=== PATIENT | male | born 2000 ===

== ENCOUNTER 2022-08-18 12:58 | Emergency (ER) | payer OTHER ==
[~2022-08-18] VITALS: Ht 182.9 cm; Wt 113.6 kg
[2022-08-18 13:18] VITALS: BP 121/66
== END 2022-08-18 17:58 | disposition left against medical advice (07) ==
LOC: ER 12:59
DX: R45.851 Suicidal ideations (principal); Z53.21 Procedure and treatment not carried out due to patient leaving prior to being seen by health care provider

== ENCOUNTER 2022-09-14 15:39 | Inpatient (IN) | payer OTHER, MEDICAID ==
[~2022-09-14] VITALS: Ht 182.9 cm; Wt 116.8 kg
--- NOTE | 2022-09-14 16:22 | NUR ---
ADMIT NOTE: Pt here on a 5150 for DTS from [facility]. Pt had a SA by overdose approximately one year ago. He has been depressed since that time. He recently had a medication change. He is c/o of "hearing voices." Property inventoried by DEJUAN Gonzalez and placed in a locker.
[2022-09-14 16:30] VITALS: BP 152/95
[2022-09-14] MEDS ORDERED: acetaminophen 325mg tablet PO PRN (16:45)
[2022-09-14] MEDS ORDERED: magnesium hydroxide 30ml (MOM) UD suspension PO PRN (16:45)
[2022-09-14] MEDS ORDERED: loperamide 2mg capsule PO PRN (16:45)
[2022-09-14] MEDS ORDERED: mag hydrox/Alum hydrox/simeth 30ml oral suspension PO PRN (16:45)
[2022-09-14] MEDS ORDERED: BUPR-94 PO (18:03)
[2022-09-14 19:21] VITALS: BP 150/76
[2022-09-14] MEDS: acetaminophen 325mg tablet PO PRN (20:29)
[2022-09-14] MEDS: traZODone 50mg tablet PO PRN (21:02)
--- NOTE | 2022-09-15 05:42 | NUR ---
Nursing Progress Note: Problem : Pt here a [address] from [facility]. Pt had a SA by overdose approximately one year ago. He has been depressed since that time. He recently had a medication change. He c/o of "hearing voices." Interventions : Introduced self and attempted to establish rapport, maintained a safe and supportive environment, ensured contract for safety, provided clear and simple instructions and maintained Q 15min safety checks. Response : Patient is pleasant and cooperative with care; no scheduled medication this shift. PRN Tylenol and Trazodone provided. He denies SI, HI, A/VH this shift; he appears animated and minimizing of Sx. Patient mostly isolative to his room; observed watching out of his window. Upon being asked, patient reported difficulties sleeping and provided Trazodone; observed sleeping and does not appear to be having difficulty. Plan : Patient requires a safe and supportive environment for medication adjustment and stabilization.
[2022-09-15 07:39] LABS: BASOPHILS % (AUTO) 0.7 % (0-1); EOSINOPHILS # (AUTO) 0.1 X10'3 (0-0.9); EOSINOPHILS % (AUTO) 2.1 % (0-6); HEMATOCRIT 43.2 % (42.0-52.0); HEMOGLOBIN 14.5 g/dl (14.0-17.9); LYMPHOCYTES # (AUTO) 1.9 X10'3 (1.1-4.8); LYMPHOCYTES % (AUTO) 28.5 % (21-51); MEAN CORPUSCULAR HEMOGLOBIN 29.1 PG (27.0-31.0); MEAN CORPUSCULAR HGB CONC 33.6 g/dL (33.0-36.5); MEAN CORPUSCULAR VOLUME 86.5 FL (78-98); MEAN PLATELET VOLUME 7.7 FL (7.4-10.4); MONOCYTES # (AUTO) 0.8 X10'3 (0-0.9); MONOCYTES % (AUTO) 11.5 % (2-12); NEUTROPHILS # (AUTO) 3.9 X10'3 (1.8-7.7); NEUTROPHILS % (AUTO) 57.2 % (42-75); PLATELET COUNT 311 X10'3 (140-440); RED BLOOD COUNT 4.99 X10'6 (4.70-6.10); RED CELL DISTRIBUTION WIDTH 13.7 % (11.5-14.5); WHITE BLOOD COUNT 6.8 X10'3 (4.5-11.0)
[2022-09-15 07:41] VITALS: BP 109/52
[2022-09-15 07:57] LABS: HEMOGLOBIN A1C 5.6 % (4.5-6.2)
[2022-09-15 07:58] LABS: ALANINE AMINOTRANSFERASE 35 U/L (12-78); ALBUMIN 3.7 G/DL (3.4-5.0); ALBUMIN/GLOBULIN RATIO 0.9 (1.1-1.5); ALKALINE PHOSPHATASE 100 IU/L (46-116); ANION GAP 10 (8-16); ASPARTATE AMINO TRANSFERASE 23 U/L (10-37); BILIRUBIN,TOTAL 0.3 MG/DL (0.1-1.0); BLOOD UREA NITROGEN 11 MG/DL (7-18); BUN/CREATININE RATIO 11.8 (5.4-32.0); CALCIUM 9.5 MG/DL (8.5-10.1); CHLORIDE 102 MMOL/L (99-107); CREATININE 0.93 MG/DL (0.60-1.10); GLUCOSE 109 MG/DL (70-104); POTASSIUM 3.8 MMOL/L (3.5-5.1); SODIUM 138 MMOL/L (135-145); TOTAL CARBON DIOXIDE 26.5 MMOL/L (24-32); TOTAL PROTEIN 7.7 G/DL (6.4-8.2); eGFR > 90 ML/MIN
[2022-09-15] MEDS: buPROPion SR 150mg tablet PO SCH ×2 (08:50→19:51)
--- NOTE | 2022-09-15 10:00 | NUR ---
Address update Edvin Ch, Father. [address] [address]
--- NOTE | 2022-09-15 10:37 | NUR ---
PSYCHOSOCIAL ASSESSMENT PT. is a 22-year-old male placed on a 5150 hold by [facility] staff at [facility] after presenting with suicidal thoughts, intrusive thoughts of hurting other people, killing his family (source: [facility] notes). Met with Pt. today. Clients presentation was well groomed, articulate, soft-spoken, good eye-contact, guarded, appeared overly smiley and positive given the circumstances (minimizing). Client was guarded in his answers, including about suicidal ideation, past attempts, and thoughts of harming others. Client appeared anxious as evidenced by body language (fidgeting) and self-reporting: Client stated being anxious about being here ([facility]). 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 Precipitating factors include a July med change from Zoloft to Wellbutrin: Client states, Its been a disaster, reporting increased depression, intrusive thoughts of losing control. Client states, everything just became too muchI feel like I had a massive panic attack. Additional stressor is clients mother just finished chemotherapy: Client reports being close very to his mother, and very close to one sister (Lucila). Client stated, "But she's doing better now." (again, potential minimizing). Client states staying with his father causes some stress: Father is strict, very jainism, and they do not agree on medina topics making things awkward because client stays at fathers house when he is in [place]. Client states he feels more comfortable in [place], finding [place] conservative and not a place he feels comfortable being. 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 Client reports on-set of depression at age 12, and stated this immediately and with clarity. Depression on maternal side of family, grandfather who is/was diagnosed as schizophrenic. 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 Client feels he may have autism: He would like to be assessed. This junior copywriter urged client to discuss his thoughts about ADHD and autism with assigned medical provider. Client affirmed. Clients stated goals are to stabilize his meds, return to [employer] and school at [employer] on 10/05/2022. Client reports like school and academics in general, has a safe apartment and compatible roommates, and he plans to get a job to get out there more and meet more people. Client would like discharge services to be virtual so he can access them in [place]/while at school. Client would like a therapist he can talk to regularly (apparently [facility] provides only short-term therapy and psychiatric services; therefore, client has started the process of establishing with his own providers). This junior copywriter feels additional conversations by multi-disciplinary team are needed to create a elizabeth assessment, when client is not so nervous. Silvana Hendricks MS, INDUSTRIAL MACHINE SYSTEM TECHNICIAN
--- NOTE | 2022-09-15 18:22 | NUR ---
Nursing Progress Note: Problem : Pt here a 5150 for DTS from [facility]. Pt had a SA by overdose approximately one year ago. He has been depressed since that time. He recently had a medication change. He c/o of "hearing voices." Interventions : Introduced self and attempted to establish rapport, maintained a safe and supportive environment, ensured contract for safety, provided clear and simple instructions and maintained Q 15min safety checks. Response : Patient is pleasant and cooperative with care; Took his 1 medication this morning just fine. PRN Tylenol and Trazodone provided. Denies SI, HI, A/VH this shift; appears animated and minimizing of Sx. Patient isolated to his room most of day; attended meals. Upon being asked how he slept, pt. reported having difficulty especially being his first night staying here on the unit. No changes noted to medications. Patient able to make needs known. Plan : Patient requires a safe and supportive environment for medication adjustment and stabilization.
[2022-09-15 20:00] VITALS: BP 133/69
[2022-09-15] MEDS: traZODone 50mg tablet PO PRN (21:35)
[2022-09-15] MEDS: acetaminophen 325mg tablet PO PRN (23:00)
[2022-09-15] MEDS ORDERED: hydrOXYzine 25 MG tablet PO PRN (23:10)
--- NOTE | 2022-09-16 05:19 | NUR ---
Nursing Progress Note: Problem : Pt here a 5150 for DTS from [facility]. Pt had a SA by overdose approximately one year ago. He has been depressed since that time. He recently had a medication change. He c/o of "hearing voices." Interventions : Introduced self and attempted to establish rapport, maintained a safe and supportive environment, ensured contract for safety, provided clear and simple instructions and maintained Q 15min safety checks. Response : Patient is pleasant and cooperative with care, compliant with medication administration. PRN Trazodone @ 2138, and Tylenol @ 2301 for headache. He denies SI, HI, A/VH this shift; he appears animated and minimizing of Sx. Patient mostly isolative to his room; observed watching out of his window; did participate with peers during snack in community room. Observed sleeping and does not appear to be having difficulty. Plan : Patient requires a safe and supportive environment for medication adjustment and stabilization.
[2022-09-16] MEDS: methylphenidate 5mg tablet PO SCH (08:36)
[2022-09-16] MEDS: duloxetine 30mg CAPSULE.DR PO SCH (08:36)
[2022-09-16 08:50] VITALS: BP 127/53
--- NOTE | 2022-09-16 17:06 | NUR ---
Nursing Progress Note: Problem: Pt here a 5150 for DTS from [facility]. Pt had a SA by overdose approximately one year ago. He has been depressed since that time. He recently had a medication change. He c/o of "hearing voices." Interventions: Introduced self and attempted to establish rapport, maintained a safe and supportive environment, ensured contract for safety, provided clear and simple instructions and maintained Q 15min safety checks. Response: Patient received resting quietly in bed. Cooperative with assessment and medications. Eats meals in the community room and is social with his peers. Pleasant and cooperative with staff. Appears somewhat animated when approached. Appears somewhat guarded and minimizes his symptoms. Denies any SI/ HI/ AH/ VH at this time. Spends much of the day socializing with peers in the community room and participating in group activities. Plan: Patient requires a safe and supportive environment for medication adjustment and stabilization.
[2022-09-16 20:00] VITALS: BP 122/70
[2022-09-16] MEDS: traZODone 50mg tablet PO PRN (20:54)
--- NOTE | 2022-09-17 04:06 | NUR ---
Nursing Progress Note: Problem: Pt here a 5150 for DTS from [facility]. Pt had a SA by overdose approximately one year ago. He has been depressed since that time. He recently had a medication change. He c/o of "hearing voices." Interventions: Introduced self and attempted to establish rapport, maintained a safe and supportive environment, ensured contract for safety, provided clear and simple instructions and maintained Q 15min safety checks. Response: Patient received socializing with peers in dining room, appears to be making friends. Noted patient likes to retreat to during free time. Ate most of dinner. Cooperative/compliant with assessment and medications and staff. When staff speaks to patient, face lights up and is very animated. Denies SI, AH, VH. States, mood is good, I just have a MANRIQUE. Requested Trazodone PRN. C/O caffeine MANRIQUE tonight, it was too early for Tylenol, offered the patient decaf coffee, however denied needing it. States pain is resolving, currently is at a 1.5/10. Patient resting well with eyes closed at this time. Plan: Patient requires a safe and supportive environment for medication adjustment and stabilization.
[2022-09-17] MEDS: duloxetine 30mg CAPSULE.DR PO SCH (08:19)
[2022-09-17] MEDS: methylphenidate 5mg tablet PO SCH (08:19)
[2022-09-17 09:07] VITALS: BP 115/67
--- NOTE | 2022-09-17 11:39 | NUR ---
DISCHARGE PLAN Rakesh is going to discharge to his father's home in [place]. He has follow up scheduled with [facility]. He is going to call [facility] to re-schedule his therapy appointment. [facility] driver trainee will transport him to his father's home today at 2 PM. JOSE R Hagan
[2022-09-17] MEDS ORDERED: traZODone 50mg tablet PO PRN (11:55)
[2022-09-17] MEDS ORDERED: HYDR-3686 PO (12:06)
[2022-09-17] MEDS ORDERED: METH20TA40 PO (12:06)
[2022-09-17] MEDS ORDERED: DULO60CA65 PO (12:06)
[2022-09-17] MEDS ORDERED: TRAZ-256 PO (12:06)
--- NOTE | 2022-09-17 16:23 | NUR ---
Discharge Note: Paperwork and follow up reviewed with the patient who is agreeable to discharge home to self-care. Escorted off the unit by staff at 14:10 with all of his belongings and is picked up by the critical access hospital driver starting gate. Discharged with the following instructions: Follow-Up: Patient has been scheduled/referred to the following providers for post-hospital discharge and aftercare treatment. Primary Care Provider: Appointment: 09/28/2022 at 2:45 PM with Renee Perez [address] [address] Therapist: Call [facility] to re-schedule your appointment # [phone] Discharge Address: [address] [place] [address] Transportation: [facility] Environmental Services Director Patient given [facility] crisis services information and National suicide hotline handout. Resources for education regarding mental illness: [address] [address] For urgent mental health crisis needs please contact Mobile Crisis Outreach Team Tuesday through Tuesday 8:30am to 5:00pm. . Mobile Crisis Outreach Team [address] [place] [phone] Urgent Out-patient Mental Health Services 365 Days A Year: [address] [address] Hours: Mon thru Fri 12pm-9pm Weekends 11am-9pm
[2022-09-18] MEDS ORDERED: methylphenidate 5mg tablet PO SCH (08:00)
== END 2022-09-17 14:07 | disposition home or self-care (01) | DRG 885 ==
LOC: ADULT MH 16:18
PROVIDERS: ADMIT Psychiatry & Neurology Psychiatry; ATTEND Psychiatry & Neurology Psychiatry
DX: F33.1 Major depressive disorder, recurrent, moderate (principal); R45.851 Suicidal ideations; E78.00 Pure hypercholesterolemia, unspecified; F41.1 Generalized anxiety disorder; G47.00 Insomnia, unspecified; R73.03 Prediabetes; J30.9 Allergic rhinitis, unspecified; F90.9 Attention-deficit hyperactivity disorder, unspecified type; F98.8 Other specified behavioral and emotional disorders with onset usually occurring in childhood and adolescence; I10 Essential (primary) hypertension; Z80.7 Family history of other malignant neoplasms of lymphoid, hematopoietic and related tissues; Z81.8 Family history of other mental and behavioral disorders; Z83.3 Family history of diabetes mellitus; Z88.2 Allergy status to sulfonamides; Z91.51 Personal history of suicidal behavior; Z79.899 Other long term (current) drug therapy
CPT/HCPCS: 36415; 80053; 83036; 84443; 85025; 87081